=== PATIENT | female | born 1990 | race Caucasian/White ===

== ENCOUNTER 2019-05-03 10:41 | Outpatient (CLI) | payer MEDICAID, SELFPAY ==
[2019-05-03 11:00] VITALS: TEMP 36.7
[2019-05-03 11:15] VITALS: BMI 31.4
[2019-05-03 11:28] VITALS: BP 0/0
[2019-05-03 11:29] VITALS: BP 134/76; PULSE 82
[2019-05-03 11:59] VITALS: BP 145/67; PULSE 73
[2019-05-03 12:29] VITALS: BP 110/56; PULSE 94
== END 2019-05-03 12:41 | disposition home or self-care (01) ==
LOC: OPOB 11:47
PROVIDERS: Family Provider Family Medicine; PCP Family Medicine; Visit Provider Family Medicine
DX: O26.899 Other specified pregnancy related conditions, unspecified trimester (principal); Z3A.00 Weeks of gestation of pregnancy not specified; R10.9 Unspecified abdominal pain
CPT/HCPCS: 99211

== ENCOUNTER 2019-05-03 19:25 | Inpatient (IN) | payer MEDICAID, SELFPAY ==
[2019-05-03] VITALS (18 sets, daily range): BP systolic 0–172; BP diastolic 0–90; PULSE 110–126; TEMP 37.1; O2SAT 97–99; BMI 31.5
[2019-05-03 20:24] LABS: Nitrazine Paper, PH Positive
[2019-05-03 20:56] LABS: Basophils # 0.1 10^3/uL (0.0-0.1); Basophils % 0.2 %; Hematocrit 33.1 % (37.0-47.0); Lymphocytes % 3.2 %; Mean Corpuscular HGB Conc 33.2 g/dL (30.0-36.0); Mean Corpuscular Hemoglobin 28.5 pg (28.0-34.0); Mean Corpuscular Volume 85.8 fL (81-99); Mean Platelet Volume 10.3 fL (7.4-10.4); Monocytes # 1.9 10^3/uL (0.2-0.9); Monocytes % 6.3 %; Neutrophils # 26.6 10^3/uL (1.8-7.7); Neutrophils % 89.4 %; Nucleated Red Blood Cells % 0 %; Platelet Count 284 10^3/cmm (130-400); Red Blood Count 3.86 10^6/uL (4.1-5.3); Red Cell Distribution Width 12.8 % (12.1-15.1); White Blood Count 29.7 10^3/uL (4.0-10.0)
[2019-05-03] MEDS: lactated ringers 1,000 ML 999 ML IV (22:02)
[2019-05-03] MEDS: lidocaine 2% INJ 20 mL INJECTION (23:51)
[2019-05-04] VITALS (20 sets, daily range): BP systolic 0–150; BP diastolic 0–75; PULSE 79–138; RESP 16–20; TEMP 36.4–37.4; O2SAT 96
--- NOTE | 2019-05-04 00:33 | P.PCNOB_ITS ---
Delivery Note: Date of delivery: May 04, 2019 Pre-delivery diagnoses: 28-year-old 1 female at 40 weeks and 4 days presenting in active labor and possible rupture membranes Post-delivery diagnoses: Same Delivering Physician: Jared Nichols Estimated blood loss (mL): 400 Pre-Delivery Course: The patient presented to the hospital with contractions every 3 minutes. She also had some leaking fluid and was found to be nitrazine positive with a moist vaginal vault. She was GBS negative. The remainder of her labs were also within normal limits. She had consistent care. She gradually progressed to complete without difficulty. Delivery: DELIVERY: The patient progressed to complete without difficulty. She delivered a female with a weight of 8 pounds 6 ounces with Apgars of 8, 9. The baby was delivered from the JAMES position. The baby's mouth and nose were suctioned at the site of the perineum. The baby was then completely delivered and placed on the mother's abdomen. The cord was then clamped and cut approximately 1 minute after delivery.. There was no nuchal cord. Meconium was noted.. The placenta and 3 vessel cord were delivered intact shortly thereafter. The perineum and vaginal vault were carefully examined. The patient was noted to have a second-degree posterior midline tear as well as a left anterior labia minora tear both were repaired with 3-0 Vicryl in the usual fashion. Both the mother and the baby were in stable condition. Post-Delivery Status: Good Coding Level of Care Code Acute Pipeline Dispatch Operator for Kacey Luna
[2019-05-04] MEDS: benzocaine-menthol 78 gm Canister 1 SPRAY TOPICAL (02:09)
[2019-05-04] MEDS: lanolin oint 7 gm 1 APPLIC TOPICAL (02:09)
[2019-05-04] MEDS: docusate sodium 100 mg Capsule PO ×2 (08:30→21:35)
[2019-05-04 12:39] LABS: Hematocrit 28.3 % (37.0-47.0); Hemoglobin 9.2 g/dL (11.5-15.3); Mean Corpuscular HGB Conc 32.5 g/dL (30.0-36.0); Mean Corpuscular Hemoglobin 28.1 pg (28.0-34.0); Mean Corpuscular Volume 86.5 fL (81-99); Mean Platelet Volume 10.2 fL (7.4-10.4); Platelet Count 251 10^3/cmm (130-400); Red Blood Count 3.27 10^6/uL (4.1-5.3); Red Cell Distribution Width 13.1 % (12.1-15.1)
[2019-05-05] MEDS: HYDROcodone-acetaminophen 5-325 mg Tablet PO (03:36)
[2019-05-05 04:00] VITALS: BP 97/52; PULSE 87; RESP 18; TEMP 36.7; O2SAT 96
--- NOTE | 2019-05-05 09:02 | P.DS_ITS ---
Discharge Providers AFFIRMATIVE ACTION OFFICER Date of Admission: 05/03/19 19:25 Date of Discharge: 05/05/19 Attending Provider at Admission: Jared Nichols MD Attending Provider at Discharge: Jared Nichols MD Primary Care Provider: Jared Nichols MD Diagnoses at Discharge Discharge Diagnosis (1) 40 weeks gestation of : Status: Acute (2) Spontaneous vaginal delivery: Status: Acute Reason for Visit Reason for Visit: Reason For Visit: contractions Hospital Course Hospital Course: The patient presented to the hospital in active labor with spontaneous rupture of membranes. She progressed to complete and had an unremarkable delivery of a healthy-appearing . She did have a second- degree posterior midline tear and an anterior left labia minora tear. They were both repaired in usual fashion. Her course was also unremarkable. Her bleeding was within normal limits. She did have some difficulty with breast-feeding her child. The nurses have worked with her consistently throughout her hospital stay. Her pain is been well controlled. Information Peripartum Data: Delivery Method: Vaginal Physical Exam Narrative: EXAM NARRATIVE: The patient is alert. She appears comfortable. Her heart has a regular rate and rhythm with no murmurs appreciated. Lungs are clear to auscultation bilaterally. Her fundus is firm and below the umbilicus. Discharge Data Data Completed and Pending: Labs from last 24 hours 05/04/19 12:20 WBC 32.0 H* RBC 3.27 L Hgb 9.2 L Hct 28.3 L MCV 86.5 MCH 28.1 MCHC 32.5 RDW 13.1 Plt Count 251 MPV 10.2 Vitals: Last Vital Signs Temp 98.0 F 05/05/19 04:00 Pulse 87 05/05/19 04:00 Resp 18 05/05/19 04:00 BP 97/52 05/05/19 04:00 Pulse Ox 96 05/05/19 04:00 Discharge Plan Discharge Patient Disposition: Home, Self-Care Condition: Stable Prescriptions: New ibuprofen 800 mg Tablet 800 mg PO TID Qty: 45 RF: 0 Continued 28 mg iron- 800 mcg Tablet PO RF: 0 Discharge Orders: Discharge Order (Routine); Ordered 05/05/19 Ordered By: Jared Nichols Referrals: Jared Nichols MD [Primary Care Provider] - 6 Weeks Discharge Diet: Regular Discharge Activity: Limit activity as instructed Discharge Attestations AFFIRMATIVE ACTION OFFICER Time Spent in Discharge Care*: less than 30 min Coding Level of Care Code Acute Evp Sales for Chg Fwd Diagnoses 40 weeks gestation of Z3A.40 Spontaneous vaginal delivery O80
[2019-05-05] MEDS: docusate sodium 100 mg Capsule PO (09:06)
--- NOTE | 2019-05-05 09:14 | PC.NURSE ---
Patient vomited [address] Nichols in department and made aware. After patient was finished vomiting, she stated sometimes the prenatals make her vomit, and sometimes just taking pills can make her vomit, as she doesn't take them very often.
[2019-05-05 10:50] VITALS: BP 130/71; PULSE 94; RESP 18; TEMP 36.4
[2019-05-05] MEDS: ondansetron 4 MG Tablet PO (12:55)
[2019-05-05 20:10] VITALS: BP 119/61; PULSE 87; RESP 18; TEMP 37.1
== END 2019-05-05 20:35 | disposition home or self-care (01) | DRG 807 ==
LOC: OBGYN 05-05 09:02 → OPOB 05-06 07:55
PROVIDERS: Admitting Provider Family Medicine; Family Provider Family Medicine; PCP Family Medicine; Visit Provider Family Medicine
DX: O70.1 Second degree perineal laceration during delivery (principal); Z37.0 Single live birth; Z3A.40 40 weeks gestation of pregnancy; O77.0 Labor and delivery complicated by meconium in amniotic fluid
CPT/HCPCS: 12345; 36415; 59409; 83986; 85025; 85027; 99211; J2001; Q0162

== ENCOUNTER 2022-04-28 13:07 | Outpatient (CLI) | payer MEDICAID, SELFPAY ==
--- NOTE | 2022-04-28 13:18 | US_ITS ---
WS: [id number] ULTRASOUND OB COMPLETE TECHNIQUE: Complete ultrasound. CLINICAL INFORMATION: MULTIGRAVIDA 2ND TRIMESTER COMPARISON: None. FINDINGS: Closed cervix measures 4.7 cm Single interuterine gestation is identified with breech presentation. Placenta is posterior. Placenta grade 1. Slightly low-lying placenta measuring 2.0 cm from the internal cervical os Normal amniotic fluid volume. OLIVERIO 10.5 cm cardiac activity: 157 BPM. AGA: 19w5d JERE by ultrasound: 09/17/2022 Based on GA: No Available percentile Estimated weight: 328 g; 0 lbs. 12 oz. BDP: 4.4 cm = 19w2d HC: 16.7 cm = 19w3d AC: 14.7 cm = 20w0d FEMUR LENGTH: 3.3 cm = 20w2d Anatomic survey: Anatomic survey is normal. Normal stomach. Kidneys and bladder are normal. Normal 3 vessel cord. Norm al 3 vessel cord insertion. Normal 4 chamber heart. Normal spine. Intracranial contents are normal. N ormal posterior fossa and cisterna magna. US/US OB >= 14 weeks fetus [id number] IMPRESSION: 1. Single intrauterine with visualized cardiac activity. AGA 19w5d w ith JERE 09/17/2022. 2. Placenta is posterior. Slightly low-lying placenta. Recommend 3rd trimester follow-up. 3. Presentation is breech. 4. anatomic survey is normal. 5. Normal amniotic fluid volume.
== END 2022-04-28 13:08 | disposition home or self-care (01) ==
PROVIDERS: PCP Family Medicine; Visit Provider Family Medicine
DX: O44.42 Low lying placenta NOS or without hemorrhage, second trimester (principal); Z3A.19 19 weeks gestation of pregnancy
CPT/HCPCS: 76805

== ENCOUNTER 2022-08-30 22:07 | Outpatient (CLI) | payer MEDICAID, SELFPAY ==
[2022-08-30 22:03] VITALS: BMI 30.5
[2022-08-30 22:13] VITALS: BP 134/84; PULSE 75; TEMP 36.9
== END 2022-08-30 22:45 | disposition home or self-care (01) ==
LOC: OPOB 22:08 → OBGYN 22:42
PROVIDERS: PCP Family Medicine; Visit Provider Family Medicine
DX: O26.893 Other specified pregnancy related conditions, third trimester (principal); Z3A.38 38 weeks gestation of pregnancy
CPT/HCPCS: 59025; 99211

== ENCOUNTER 2022-09-11 18:48 | Inpatient (IN) | payer MEDICAID, SELFPAY ==
[2022-09-11] VITALS (10 sets, daily range): BP systolic 101–127; BP diastolic 52–78; PULSE 60–81; RESP 16; TEMP 36.1–36.3; BMI 31.4
[2022-09-11 19:39] LABS: Basophils % 0.4 %; Eosinophils # 0.2 10^3/uL (0.0-0.8); Eosinophils % 2.1 %; Hemoglobin 10.2 g/dL (11.5-15.3); Lymphocytes # 1.6 10^3/uL (0.8-4.8); Lymphocytes % 16.2 %; Mean Corpuscular HGB Conc 32.9 g/dL (30.0-36.0); Mean Corpuscular Volume 88.1 fl (81-99); Mean Platelet Volume 10.3 fL (7.4-10.4); Monocytes # 0.7 10^3/uL (0.2-0.9); Neutrophils # 7.24 10^3/uL (1.8-7.7); Neutrophils % 73.6 %; Nucleated Red Blood Cells % 0 %; Platelet Count 221 10^3/cmm (130-400); Red Blood Count 3.52 10^6/uL (4.1-5.3); Red Cell Distribution Width 12.9 % (12.1-15.1); White Blood Count 9.8 10^3/uL (4.0-10.0)
[2022-09-11] MEDS: miSOPROStol 100 mcg tablet 25 MCG VAGINAL (20:05)
[2022-09-12] VITALS (66 sets, daily range): BP systolic 85–150; BP diastolic 46–97; PULSE 56–120; RESP 12–20; TEMP 35.7–38.3; O2SAT 96–100
[2022-09-12] MEDS: miSOPROStol 100 mcg tablet 25 MCG VAGINAL ×2 (02:50→06:58)
[2022-09-12] MEDS: dextrose 5%-lactated ringers 1,000 ML 125 ML IV ×2 (11:40→21:00)
[2022-09-12] MEDS: fentaNYL 50 mcg/mL INJ 2mL IVP ×2 (11:40→12:52)
[2022-09-12] MEDS: lactated ringers 1,000 ML 999 ML IV (13:15)
--- NOTE | 2022-09-12 13:57 | ANES.PREANE2 ---
Pre-Anesthetic Assessment Height/Weight: Height 1.73 m Weight 93.894 kg Temp Pulse Resp BP Pulse Ox O2 Del Method 98.2 F 92 20 H 118/60 100 Room Air 09/12/22 13:43 09/12/22 13:53 09/12/22 12:52 09/12/22 13:51 09/12/22 13:53 09/11/22 21:55 epidural Familial anesthetic complications: none Social No alcohol and No tobacco Exam alert, oriented x 3, clear to auscultation bilaterally and regular rate & rhythm Airway Mallampati: Class II Dentition: full Anesthetic Plan ASA status: 2 Anesthesia: Regional (specify below) Risk of > 500 ml blood loss (7ml/kg in children): No Medications/Allergies Home Medications Medication Instructions Recorded Confirmed Last Taken Type vit no.95-ferrous 1 tab PO DAILY 05/04/19 09/11/22 09/09/22 History fumarate 28 mg-folic acid 800 mcg tablet () Allergies Allergy/AdvReac Type Severity Reaction Status Date / Time No Known Allergies Allergy Verified 09/11/22 21:54 Current Medications Generic Name Dose Route Start Last Admin Trade Name Freq PRN Reason Stop Dose Admin Fentanyl 25 - 100 mcg 09/12/22 11:30 09/12/22 12:52 Fentanyl 50 Mcg/Ml Inj 2ml IVP 100 mcg Q1H PRN Administration SEVERE PAIN Dextrose/Lactated Ringer's 1,000 mls @ 125 mls/hr 09/11/22 19:34 09/12/22 11:40 Dextrose 5%-Lactated Ringers IV 125 mls/hr .Q8H PRN Administration per label comments Oxytocin 30 unit/ Sodium 503 mls @ 600 mls/hr 09/12/22 12:00 09/12/22 12:31 Chloride IV 600 mls/hr .Q51M PRN 600 mls/hr POST DELIVERY Administration Protocol Lactated Ringer's 1,000 mls @ 999 mls/hr 09/12/22 12:57 09/12/22 13:15 Lactated Ringers IV 999 mls/hr .Q1H1M PRN Administration See label comments Ropivacaine 100 mg in 50 mls @ 10 mls/hr 09/12/22 13:00 09/12/22 13:14 Naropin Syringe EPIDURAL 10 mls/hr .Q5H ELI Administration PFSH Anesthesia Female Reproductive History : 2 Data Anesthesia 09/11/22 19:23 Short CBC 09/11/22 Range/Units 19:23 WBC 9.8 (4.0-10.0) 10^3/uL Hgb 10.2 L (11.5-15.3) g/dL Hct 31.0 L (37.0-47.0) % MCV 88.1 (81-99) fl Plt Count 221 (130-400) 10^3/cmm Neut % (Auto) 73.6 % Neut # (Auto) 7.24 (1.8-7.7) 10^3/uL Blood Bank 09/11/22 19:23 Blood Type A Negative Rho(D) Type Negative Antibody Screen Negative Cardiac Studies: No Data to Display
--- NOTE | 2022-09-12 13:58 | ANES.PROC ---
Anesthesia Procedures Procedure/Date: 09/12/22 Epidural: Time Out Performed: Yes Consents Signed: Procedure Consent Consent: requested by attending/covering physician, from patient, risks and benefits reviewed and patient agrees to proceed Lumbar Level: L3-L4 Epidural position: sitting Epidural procedure: sterile prep of area, 1% lidocaine to numb the area, 18 g needle, negative for paresthesia passed, neg for paresthesia, test dose given, 1.5% xylocaine 1:200k epi (5 cc), 0.2% Ropivacaine bolus ml (5), placed PCEA, no systemic response, sterile dressing applied, L.U.D. no apparent complications and 0.2% Ropiavacaine @ mls/hr (10) Additional Comments: PRANAV at 4.5 cm, threaded to 12 cm. Patient reported pain free contraction
[2022-09-12] MEDS: ondansetron 2 mg/ML SDV 2 mL 4 MG IVP (15:37)
--- NOTE | 2022-09-12 18:33 | PM.OBGYHP ---
Providers/Chief Complaint Admitting Physician: Jared Nichols MD Primary Care Provider: Jared Nichols MD HPI PERFORMING [employer] RO[address] MANAGER History of Present Illness Priscilla Caballero is a 31 year old 2 para 1-0-0-1 female at 40 weeks estimated gestational age who presented to the hospital last night for induction. She received Cytotec 25 mcg x 3. She had spontaneous rupture of membranes. She was noted to have an unusual presentation today around noon. Due to molding, I was able to determine the exact presentation of the infant, but did not change his station in about 5 to 6 hours. In addition the became tachycardic, and did demonstrate some late decelerations in the face of moderate variability. As result of the lack of progression, questionable presentation, and concerns regarding the heart tones decision was made to proceed with a section. Present Details : 2 Para: 1 Labs Rubella: Immune RPR: Negative GBS: Negative Review of Systems General: Reports: 10 or more systems reviewed and unremarkable except in HPI and below Const: Reports: fever(s) (The patient did have a Tmax of 99.9.) and fatigue Eyes: Denies: change in vision Card: Denies: chest pain Musc: Reports: back pain Dawit/Lymph: Denies: easy bruising Medications/Allergies Home Medications Medication Instructions Recorded Confirmed Last Taken Type vit no.95-ferrous 1 tab PO DAILY 05/04/19 09/11/22 09/09/22 History fumarate 28 mg-folic acid 800 mcg tablet () docusate sodium 100 mg capsule 100 mg PO BID #40 caps 09/14/22 Unknown Rx hydrocodone 5 mg-acetaminophen 325 1 tab PO Q4H PRN Moderate To 09/14/22 Unknown Rx mg tablet Severe Pain #30 tabs ibuprofen 800 mg tablet 800 mg PO TID #45 tabs 09/14/22 Unknown Rx Allergies Allergy/AdvReac Type Severity Reaction Status Date / Time No Known Allergies Allergy Verified 09/11/22 21:54 [address]SH [address] MANAGER PFSH: Social History (Updated 09/12/22 @ 18:49 by Jared Nichols MD) Marital status: Single Vitals/I&O/Wt Last Vital Signs Temp 99.9 F H 09/12/22 17:48 Pulse 90 07/10/23 18:14 Resp 20 H 09/12/22 12:52 BP 142/73 09/12/22 18:14 Pulse Ox 100 09/12/22 13:53 O2 Del Method Room Air 09/11/22 21:55 09/12/22 09/12/22 09/12/22 06:59 14:59 22:59 Intake Total 350 / 350 Output Total 200 / 200 Balance 150 / 150 Weight last 48 hrs Weight 207 lb Physical Exam Const: COMMON NORMALS: patient oriented x3 and alert HENMT: COMMON NORMALS: moist oral mucous membranes HEAD & SCALP: normal to inspection Chest: COMMONS NORMALS: normal inspection of the chest Resp: COMMON NORMALS: clear to auscultation bilaterally AUSCULTATION: clear to auscultation bilaterally Cardio: COMMON NORMALS: regular rate and regular rhythm RATE: regular rate RHYTHM: regular rhythm GI: INSPECTION: Yes normal to inspection and Yes other (Gravid) : OTHER: The cervix is 9 cm dilated, 90% effaced. Unfortunately the head is not well applied to the cervix. Extremity: COMMON NORMALS: normal to inspection GENERAL: Yes edema (Trace) Neuro: COMMON NORMALS: patient oriented x3, moves all extremities and no sensory deficits noted SENSORIUM/ORIENTATION: Yes alert Psych: COMMON NORMALS: mental status grossly normal Skin: COMMON NORMALS: no rashes or lesions noted GENERAL SKIN EXAM: no rashes or lesions noted Urinary Catheter Management: Mcintosh: Cath Placed During This Visit: yes Urinary Catheter Date of Insertion: 09/12/22 Urinary Catheter Time of Insertion: 13:55 Data 09/14/22 04:10 A&P Assessment and plan (1) Failure to progress in labor: We will proceed with a section. I discussed the risks with the patient including the risk of bleeding, and infection, and damage intra-abdominal organs. She had no further questions and wished to proceed. I also spoke with her mother on the phone and explained the situation to her, and she had no further questions. (2) tachycardia: (3) 40 weeks gestation of : Attestations Medical Necessity Statement*: I anticipate the patient will have routine and post care Coding Level of Care Code Acute Code for Chg Fwd Diagnoses Failure to progress in labor O62.2 tachycardia 40 weeks gestation of Z3A.40
[2022-09-12] MEDS: citric acid-sodium citrate 30 mL UDC PO (18:37)
[2022-09-12] MEDS: famotidine 20 mg/2 mL INJ IVP (18:37)
--- NOTE | 2022-09-12 20:26 | P.OP_ITS ---
Operative Report Date of procedure: September 12, 2022 Pre-op diagnosis: 1. 31-year-old 2 para 1-0-0-1 at 40 weeks estimated gestational age 2. Failure to progress 3. tachycardia, late decelerations Post-op diagnosis: Same Procedure done: Transverse section Specimens removed/disposition: 1. Female with a weight of 8 pounds 14 ounces and Apgars of 8 and 9 2. Placenta with a three-vessel cord delivered intact Surgeon: Jared Nichols Estimated blood loss (mL): 800 Procedure: The patient was brought back to the operating room where she was prepped and draped in usual sterile fashion. Anesthesia was found to be adequate. A lower transverse skin incision was then made with a #10 blade. I then dissected down to the underlying subcutaneous tissue until arriving at the prerectal fascia. The fascia was then nicked with the scalpel bilaterally. The fascial incisions were then carried laterally with Babin scissors. Attention was then turned to the superior aspect of the incision which was grasped with kochers and tented up away from the underlying rectus abdominis muscles. The muscles were then dissected away from the fascia manually, and later with Babin scissors. Att ention was then turned to the inferior aspect of the incision, and the fascia was dissected away from the underlying muscle in similar fashion. The rectus abdominis muscles were then spread manually. The peritoneum was entered manually. Excellent visualization of the uterus was noted. A lower transverse uterine incision was then made with a #10 blade. Upon arriving at the intrauterine cavity, the uterine incision was then extended manually. The infant was noted to be in vertex position. The baby was delivered without difficulty. After delivery of the head, the mouth and nose were suctioned at the site of the incision. There was no meconium. There was a tight nuchal cord x1 which was easily reduced.. The cord was cut and clamped. The baby was then handed to the waiting nurse. The placenta was removed intact. The uterus was externalized. The intrauterine cavity was cleansed of any remaining debris. The uterine incision was reapproximated in 2 layers. The first layer was performed with 0 Vicryl in a running locked stitch. The second layer was an imbricating stitch also using 0 Vicryl. The uterus was replaced into the abdomen. The peritoneum was then irrigated with warm saline. I reexamined the uterine incision and and noted some bleeding in the midportion of uterine incision. I placed 2 3 of 8 stitches.. The rectus abdominis muscles were then reapproximated using 0 Vicryl in a running stitch. The fascia was then reapproximated using 0 Vicryl in running stitch. Subcutaneous tissue was also reapproximated with 0 Vicryl in a running stitch. The skin was reapproximated using dorinda. A sterile dressing was placed. All counts were correct x2. Both the mother and baby were in stable condition.
[2022-09-13] VITALS: BP 101/55; PULSE 68; RESP 16; TEMP 36.6; TEMP 36.7
[2022-09-13 04:00] VITALS: BP 94/56; PULSE 65
[2022-09-13] MEDS: ketorolac 30 mg/mL INJ IVP ×2 (04:00→10:31)
[2022-09-13] MEDS: HYDROcodone-acetaminophen 5-325 mg Tablet PO (05:20)
[2022-09-13] MEDS: simethicone 80 mg Chew PO ×2 (05:20→21:26)
[2022-09-13 06:00] VITALS: PULSE 70; TEMP 36.9; O2SAT 98
[2022-09-13 06:08] LABS: Hematocrit 31.7 % (37.0-47.0); Hemoglobin 10.2 g/dL (11.5-15.3); Mean Corpuscular HGB Conc 32.2 g/dL (30.0-36.0); Mean Corpuscular Hemoglobin 28.7 pg (28.0-34.0); Mean Platelet Volume 10.6 fL (7.4-10.4); Platelet Count 206 10^3/cmm (130-400); Red Blood Count 3.56 10^6/uL (4.1-5.3); Red Cell Distribution Width 12.9 % (12.1-15.1)
[2022-09-13 06:21] LABS: White Blood Count 36.2 10^3/uL (4.0-10.0)
--- NOTE | 2022-09-13 06:53 | PM.OBGYPN ---
REGIONAL SALES CONSULTANT Subjective Subjective: Interval history: The patient has had an unremarkable night. After the she did have a temperature of 101, but that resolved and her temperature has been normal since that time. Her vitals have been within normal limits. She is felt good. She has not passed gas. Labor: Station: -3 Amniotic Membrane Status: Ruptured Monitor Mode: External Contraction Pattern: Regular Vitals/I&O/Wt Last Vital Signs Temp 98.5 F 09/13/22 06:00 Pulse 70 09/13/22 06:00 Resp 16 09/13/22 00:00 BP 94/56 09/13/22 04:00 Pulse Ox 98 09/13/22 06:00 O2 Del Method Room Air 09/13/22 06:00 09/12/22 09/12/22 09/13/22 14:59 22:59 06:59 Intake Total 2049 / 2049 Output Total 1300 / 1300 450 / 1750 Balance 750 / 750 -450 / 300 Weight last 48 hrs Weight 207 lb Physical Exam Narrative: She is in no acute distress Lungs are clear auscultation bilaterally Her heart has a regular rate and rhythm Her fundus is below the umbilicus and firm Her dressing is clean, dry and intact Her extremities have trace edema Urinary Catheter Management: Mcintosh: Cath Placed During This Visit: yes Urinary Catheter Date of Insertion: 09/12/22 Urinary Catheter Time of Insertion: 13:55 Data 09/14/22 04:10 A&P Assessment and plan (1) Status post : She is doing well, and anticipates she will have a routine post course at this time. (2) Leukocytosis: Upon the patient's white count has increased, she has no other signs of infection at this time. She did have a Tmax of 101 shortly after the but has had normal temperatures and normal vitals since that time. Her urine output has been good. She has felt great. She is hungry. We will monitor her for any signs of infection but otherwise we are going to conservatively manage her at this time. We will keep her for 48 hours to ensure that there are no signs that are delayed that we might miss. Attestations Medical Necessity Statement*: Routine and post care Coding Level of Care Code Acute Code for Chg Fwd Diagnoses Status post Z98.891 Leukocytosis D72.829
[2022-09-13] MEDS: docusate sodium 100 mg Capsule PO ×2 (07:48→21:26)
[2022-09-13] MEDS: prenatal vitamin Capsule 1 CAP PO (07:48)
[2022-09-13 09:52] VITALS: BP 120/70; PULSE 67; RESP 15; TEMP 36.4; O2SAT 99
[2022-09-13] MEDS: ondansetron 2 mg/ML SDV 2 mL 4 MG IVP (10:31)
--- NOTE | 2022-09-13 14:43 | ANE.PACU2 ---
Inpatient post-anesthesia follow up: Airway intact: Yes Vital signs: Temperature 97.5 F Pulse Rate 67 Respiratory Rate 15 Blood Pressure 120/70 Pulse Oximetry 99 Oxygen Delivery Me thod Room Air Oxygen Flow Rate Fraction of Inspir ed Oxygen Hydration adequate: Yes Nausea and vomiting: Yes Pain level: 1 Mental status: Baseline
[2022-09-13 16:00] VITALS: BP 118/70; PULSE 80; RESP 14; TEMP 36.4; O2SAT 98
[2022-09-13] MEDS: ibuprofen 800 mg tablet PO (21:26)
[2022-09-13] MEDS: ferrous sulfate EC 325 mg Tablet PO (21:27)
[2022-09-13 22:11] VITALS: BP 123/63; PULSE 91; RESP 18; TEMP 36.8; O2SAT 95
[2022-09-14 04:00] VITALS: BP 91/53; PULSE 73; RESP 18; TEMP 36.7; O2SAT 97
[2022-09-14] MEDS: HYDROcodone-acetaminophen 5-325 mg Tablet PO (04:14)
[2022-09-14 04:17] LABS: Basophils # 0.1 10^3/uL (0.0-0.1); Basophils % 0.5 %; Eosinophils # 0.2 10^3/uL (0.0-0.8); Eosinophils % 0.9 %; Hematocrit 28.4 % (37.0-47.0); Hemoglobin 8.9 g/dL (11.5-15.3); Lymphocytes # 1.6 10^3/uL (0.8-4.8); Lymphocytes % 7.1 %; Mean Corpuscular HGB Conc 31.3 g/dL (30.0-36.0); Mean Corpuscular Volume 92.5 fl (81-99); Mean Platelet Volume 10.4 fL (7.4-10.4); Monocytes # 0.9 10^3/uL (0.2-0.9); Monocytes % 4.3 %; Neutrophils % 86.6 %; Nucleated Red Blood Cells % 0 %; Platelet Count 203 10^3/cmm (130-400); Red Blood Count 3.07 10^6/uL (4.1-5.3); Red Cell Distribution Width 13.3 % (12.1-15.1); White Blood Count 21.7 10^3/uL (4.0-10.0)
--- NOTE | 2022-09-14 07:39 | P.DS_ITS ---
Discharge Providers PAN RECLAIM PROCESSOR Date of Admission: 09/11/22 18:48 Date of Discharge: 09/14/22 Attending Provider at Admission: Jared Nichols MD Attending Provider at Discharge: Jared Nichols MD Primary Care Provider: Jared Nichols MD Diagnoses at Discharge Discharge Diagnosis (1) Status post : Status: Acute (2) Leukocytosis: Status: Acute Hospital Course Hospital Course The patient presented for induction and had Cytotec 25 mcg x 3. She had spontaneous rupture of membranes. Her child then had a malpresentation and did not progress over 4 to 5 hours. There were intermittent late decelerations, and tachycardia. Due to her lack of progress and the concerning heart tones, the decision was made to proceed with a . The was unremarkable. The patient did have a Tmax of 101 after the , but it quickly resolved, and she appeared to be doing well in all regards. Her course was unremarkable. Her bleeding was within normal limits. Her pain was well controlled. She breast-fed well. She did have a white blood count of 36,000. There were no other indications of infection or concerns for infection. Her diet was advanced. She passed flatus. She ambulated frequently and without difficulty. Information Peripartum Data: Delivery Method: Physical Exam Narrative: She is in no acute distress Lungs are clear auscultation bilaterally Her heart has a regular rate and rhythm Her fundus is below the umbilicus and firm Her incision is clean, dry and intact Her extremities have trace edema Urinary Catheter Management: Mcintosh: Cath Placed During This Visit: yes, but has since been removed by the nurse Reason for Continuing Indwelling Catheter: Decision to DC Catheter Urinary Catheter Date of Insertion: 09/12/22 Urinary Catheter Time of Insertion: 13:55 Date Urinary Catheter Removed: 09/13/22 Time Urinary Catheter Discontinued: 09:25 Discharge Data Studies Completed and Pending Laboratory Results WBC 21.7 10^3/uL (4.0-10.0) H 09/14/22 04:10 RBC 3.07 10^6/uL (4.1-5.3) L 09/14/22 04:10 Hgb 8.9 g/dL (11.5-15.3) L 09/14/22 04:10 Hct 28.4 % (37.0-47.0) L 09/14/22 04:10 MCV 92.5 fl (81-99) 09/14/22 04:10 MCH 29.0 pg (28.0-34.0) 09/14/22 04:10 MCHC 31.3 g/dL (30.0-36.0) 09/14/22 04:10 RDW 13.3 % (12.1-15.1) 09/14/22 04:10 Plt Count 203 10^3/cmm (130-400) 09/14/22 04:10 MPV 10.4 fL (7.4-10.4) 09/14/22 04:10 Neut % (Auto) 86.6 % 09/14/22 04:10 Lymph % (Auto) 7.1 % 09/14/22 04:10 Menard % (Auto) 4.3 % 09/14/22 04:10 Eos % (Auto) 0.9 % 09/14/22 04:10 Baso % (Auto) 0.5 % 09/14/22 04:10 Neut # (Auto) 18.80 10^3/uL (1.8-7.7) H 09/14/22 04:10 Lymph # (Auto) 1.6 10^3/uL (0.8-4.8) 09/14/22 04:10 Menard # (Auto) 0.9 10^3/uL (0.2-0.9) 09/14/22 04:10 Eos # (Auto) 0.2 10^3/uL (0.0-0.8) 09/14/22 04:10 Baso # (Auto) 0.1 10^3/uL (0.0-0.1) 09/14/22 04:10 Nucleated RBC % (auto) 0 % 09/14/22 04:10 Nucleated RBCs # 0.0 /100WBC 09/14/22 04:10 Blood Type A Negative 09/11/22 19:23 Rho(D) Type Negative 09/11/22 19:23 Antibody Screen Negative 09/11/22 19:23 Vitals Last Vital Signs Temp 98.1 F 09/14/22 04:00 Pulse 73 09/14/22 04:00 Resp 18 09/14/22 04:00 BP 91/53 09/14/22 04:00 Pulse Ox 97 09/14/22 04:00 O2 Del Method Room Air 09/14/22 04:00 Discharge Plan Discharge Patient Disposition: Home Prescriptions: New ibuprofen 800 mg Tablet 800 mg PO TID Qty: 45 0RF hydrocodone-acetaminophen 5-325 mg Tablet 1 tab PO Q4H PRN (Reason: Moderate To Severe Pain) Qty: 30 0RF docusate sodium 100 mg Capsule 100 mg PO BID Qty: 40 0RF Rx Instructions: Take 2 BID Continued PNV cmb#95-ferrous fumarate-FA [] 28 mg iron- 800 mcg Tablet 1 tab PO DAILY Discharge Orders: Discharge Order (Routine); Ordered 09/14/22 Ordered By: Jared Nichols Referrals: Jared Nichols MD [Primary Care Provider] - 09/19/22 4:20 pm Discharge Diet: Usual diet Discharge Activity: Limit activity as instructed Patient Instructions: Depression (DC), Bleeding (DC), Preeclampsia and Eclampsia After Delivery (GEN), OB - Michael, OB Discharge Report, OB Care at Home, Opioid Safety Discharge Attestations PAN RECLAIM PROCESSOR Time Spent in Discharge Care*: greater than 30 min Coding Level of Care Code Acute Code for Chg Fwd Diagnoses Status post Z98.891 Leukocytosis D72.829
[2022-09-14 09:46] VITALS: BP 99/57; PULSE 73; RESP 18; TEMP 36.8; O2SAT 97
[2022-09-14] MEDS: ferrous sulfate EC 325 mg Tablet PO ×2 (09:46→18:37)
[2022-09-14] MEDS: docusate sodium 100 mg Capsule PO ×2 (09:47→18:37)
[2022-09-14] MEDS: ibuprofen 800 mg tablet PO ×2 (09:47→15:35)
[2022-09-14] MEDS: prenatal vitamin Capsule 1 CAP PO (09:47)
[2022-09-14] MEDS: ondansetron 2 mg/ML SDV 2 mL 4 MG IVP (11:44)
[2022-09-14 15:36] VITALS: BP 105/63; PULSE 80; TEMP 36.7; O2SAT 97
[2022-09-14 19:55] VITALS: BP 118/64; PULSE 72; RESP 17; TEMP 36.7; O2SAT 99
== END 2022-09-14 20:00 | disposition home or self-care (01) | DRG 787 ==
PROVIDERS: Admitting Provider Family Medicine; PCP Family Medicine; Visit Provider Family Medicine
PROC: 10D00Z1 Extraction of Products of Conception, Low, Open Approach (ICD-10-PCS; CPT 59514; principal; 2022-09-12 19:00)
DX: O62.8 Other abnormalities of forces of labor (principal); O86.4 Pyrexia of unknown origin following delivery; Z3A.40 40 weeks gestation of pregnancy; O76 Abnormality in fetal heart rate and rhythm complicating labor and delivery; O69.81X0 Labor and delivery complicated by cord around neck, without compression, not applicable or unspecified; Z37.0 Single live birth; O90.89 Other complications of the puerperium, not elsewhere classified; D72.829 Elevated white blood cell count, unspecified
CPT/HCPCS: 36415; 51702; 59025; 59409; 85025; 85027; 86850; 86900; 96374; 96376; 99211; J1885; J2274; J2400; J2405; J2590; J2795; J3010; J3490; J7040; J7120; J7121

== ENCOUNTER 2023-02-06 12:49 | Outpatient (CLI) | payer MEDICAID, SELFPAY ==
--- NOTE | 2023-02-06 13:00 | MR_ITS ---
WS: [id number] MRI OF THE PELVIS WITHOUT AND WITH GADOLINIUM ENHANCEMENT. INDICATION: Fibroids TECHNIQUE: Axial T1, axial T2, sagittal T2, coronal T2, and post gadolinium imaging was obtained with fat saturation technique. Axial diffusion and ADC imaging. Comparison: Ultrasound 12/15/2022 FINDINGS: Again seen is the previously described mass on the recent ultrasound measuring approximatel y 6.3 x 7.0 x 6.6 cm. This demonstrates decreased T1 and T2 signal with diffuse enhancement on the po st gadolinium delayed imaging following the uterine myometrium enhancement. Small lobulated component s extend into the LEFT aspect of the uterus adjacent to the LEFT ovary. This abuts the the multi follicular LEFT ovary. Compression of the uterus with left-right mass effect with compression of the adjacent sigmoid colon. Due to the large size, origin is difficult to identi fy but may be arising from the uterus. Tiny amount of surrounding free fluid. Normal appearing multi follicular RIGHT ovary. No lymphadenopa thy. Anteverted uterus. IMPRESSION: 1. Large lobulated LEFT pelvic mass extending into the cul-de-sac as seen on the recent ultrasound s table in size. 2. Origin is difficult to identify due to large size but primary differential consideration is exoph ytic uterine fibroid. Also consider tubal or ovarian leiomyomas. Tubal or ovarian neoplasm considered less likely but not excluded. Recommend surgical excision. 3. No pelvic or inguinal lymphadenopathy 4. Multi follicular ovaries bilaterally.
[2023-02-06] MEDS: gadobenate dimeglumine 20 mL vial IV (13:51)
== END 2023-02-06 12:50 | disposition home or self-care (01) ==
LOC: RAD 12:50
PROVIDERS: PCP Family Medicine; Visit Provider Obstetrics & Gynecology
DX: R19.00 Intra-abdominal and pelvic swelling, mass and lump, unspecified site (principal); D36.7 Benign neoplasm of other specified sites
CPT/HCPCS: 72197; A9577

== ENCOUNTER 2023-04-19 09:53 | Emergency (ER) | payer MEDICAID, SELFPAY ==
[2023-04-19 10:06] VITALS: BP 117/65; PULSE 86; TEMP 37; O2SAT 99; BMI 24.3
[2023-04-19 12:12] VITALS: BP 115/65; PULSE 82; O2SAT 99
--- NOTE | 2023-04-19 12:52 | ED_ITS ---
HPI - Fever 2 General: Chief Complaint: Fever Stated Complaint: Fever Time Seen by Provider: 04/19/23 12:17 History of Present Illness: Patient presents to the ER with complaints of fever. Patient states she been running a fever since Monday. Patient says the highest that it got was 107 degrees. Patient also had some lower abdominal pain with nausea and vomiting and diarrhea. Patient's had vomiting for about the last 3 days and diarrhea today. Patient states her abdominal pain is around her umbilicus when it happens. Patient also has some urinary frequency and burning. Patient has been around no known sick contacts. Patient's temperature upon arrival was 98.6. Review of Systems 2 General: Reports: 10 or more systems reviewed and unremarkable except in HPI and below PFSH ED 2 PFSH: Family History Denies family history of Colon cancer Ovarian cancer Thyroid cancer Diabetes Heart disease Hyperlipidemia Breast cancer Hypertension Uterine cancer Stroke Social History Marital status: Single Physical Exam 2 Const: COMMON NORMALS: no acute distress, average body habitus, patient oriented x3, no limitations, healthy appearing, alert and well nourished HENMT: COMMON NORMALS: normocephalic, atraumatic, hearing grossly normal bilaterally, external ears normal, Normal external nose present, moist oral mucous membranes and oropharynx normal HEAD & SCALP: normocephalic and atraumatic NOSE: Normal external nose present EXTERNAL EAR: Yes external ears normal Neck/C-Spine: COMMON NORMALS: full ROM, no lymphadenopathy, supple, no meningeal signs, no JVD and Thyroid normal THYROID: Thyroid normal Chest: COMMONS NORMALS: normal inspection of the chest and normal palpation of entire chest wall Resp: COMMON NORMALS: normal respiratory effort, No retractions, No use of accessory muscles and clear to auscultation bilaterally AUSCULTATION: clear to auscultation bilaterally Cardio: COMMON NORMALS: no JVD, regular rate, regular rhythm, S1 normal heart sound present, S2 normal heart sound present, No gallops present (Cardio), No clicks present (Cardio), No murmurs present (Cardio) and No rub (Cardio) R ATE: regular rate RHYTHM: regular rhythm HEART SOUNDS: S1 normal heart sound present and S2 normal heart sound present GI: COMMON NORMALS: Normal to inspection, nondistended, normoactive bowel sounds present, Soft to palpation, non-tender, No hepatosplenomegaly present and no masses PALPATION: Yes Soft to palpation and Yes No hepatosplenomegaly present Neuro: COMMON NORMALS: patient oriented x3 SENSORIUM/ORIENTATION: Yes alert MENINGEAL SIGNS: Yes no meningeal signs Course 2 Vital Signs: Vital signs: Vital Signs Temperature 98.6 F 04/19/23 10:06 Pulse Rate 82 04/19/23 12:12 Blood Pressure 115/65 04/19/23 12:12 Pulse Oximetry 99 04/19/23 12:12 Oxygen Delivery Me thod Room Air 04/19/23 12:12 MDM - Fever Medical Decision Making Patient presents to the ER with complaints of fever. Patient was worked up with labs and urinalysis. Patient's white count was normal at 14.3 however patient urinalysis showed significant infection with urine white cells greater than 100. Patient was influenza and COVID-negative. Patient was given 1 L normal saline, 4 mg Zofran, Cipro 500 mg p.o. here in ER. Patient be discharged with prescription for Zofran and Cipro. Differential Diagnosis Likely abdominal pain; Unlikely acute appendicitis, calculus of kidney, constipation, diverticulitis, endometriosis, gastroenteritis, pancreatitis or small bowel obstruction Medical Records I reviewed the patient's medical records. Lab Data I reviewed the patient's lab results. 04/19/23 12:59 04/19/23 12:59 Laboratory Results WBC 10.94 10^3/uL (3.29-11.43) 04/19/23 12:59 RBC 4.77 10^6/uL (3.85-5.65) 04/19/23 12:59 Hgb 14.30 g/dL (11.27-16.99) 04/19/23 12:59 Hct 42.0 % (36-47) 04/19/23 12:59 MCV 88.1 fl (85-98) 04/19/23 12:59 MCH 30.0 pg (27-33) 04/19/23 12:59 MCHC 34.0 g/dL (30-55) 04/19/23 12:59 RDW 12.9 % (12.1-15.1) 04/19/23 12:59 Plt Count 227 10^3/cmm (157-399) 04/19/23 12:59 MPV 9.8 fL (7.4-10.4) 04/19/23 12:59 Neut % (Auto) 89.7 % 04/19/23 12:59 Lymph % (Auto) 7.7 % 04/19/23 12:59 Weber % (Auto) 1.9 % 04/19/23 12:59 Eos % (Auto) 0.1 % 04/19/23 12:59 Baso % (Auto) 0.3 % 04/19/23 12:59 Neut # (Auto) 9.82 10^3/uL (1.8-7.7) H 04/19/23 12:59 Lymph # (Auto) 0.8 10^3/uL (0.8-4.8) 04/19/23 12:59 Weber # (Auto) 0.2 10^3/uL (0.2-0.9) 04/19/23 12:59 Eos # (Auto) 0.0 10^3/uL (0.0-0.8) 04/19/23 12:59 Baso # (Auto) 0.0 10^3/uL (0.0-0.1) 04/19/23 12:59 Nucleated RBC % (auto) 0 % 04/19/23 12:59 Nucleated RBCs # 0.0 /100WBC 04/19/23 12:59 Sodium 135 mmol/L (136-145) L 04/19/23 12:59 Potassium 3.9 mmol/L (3.5-5.1) 04/19/23 12:59 Chloride 96 mmol/L (98-107) L 04/19/23 12:59 Carbon Dioxide 28 mmol/L (22-29) 04/19/23 12:59 Anion Gap 14.9 (5-19) 04/19/23 12:59 BUN 10 mg/dL (6-20) 04/19/23 12:59 Creatinine 0.9 mg/dL (0.5-0.9) 04/19/23 12:59 GFR Calculation 73.5 mL/min (90-130) L 04/19/23 12:59 Glucose 114 mg/dL (65-115) 04/19/23 12:59 Calculated Osmolality 280 mOsm/kg (285-295) L 04/19/23 12:59 Calcium 8.8 mg/dL (8.5-10.5) 04/19/23 12:59 Magnesium 2.3 mg/dL (1.7-2.3) 04/19/23 12:59 Total Bilirubin 0.9 mg/dL (0.15-1.2) 04/19/23 12:59 AST 14 U/L (0-32) 04/19/23 12:59 ALT 17 U/L (0-33) 04/19/23 12:59 Alkaline Phosphatase 52 U/L (35-105) 04/19/23 12:59 Total Protein 8.0 g/dL (6.6-8.7) 04/19/23 12:59 Albumin 3.8 g/dL (3.5-5.2) 04/19/23 12:59 Globulin 4.2 g/dL (1.3-4.6) 04/19/23 12:59 HCG, Qual Negative (Negative) 04/19/23 12:40 Urine Color Yellow (Yellow) 04/19/23 12:40 Urine Appearance Hazy (CLEAR) A 04/19/23 12:40 Urine pH 6 (5-7) 04/19/23 12:40 Ur Specific [place] 1.010 (1.005-1.030) 04/19/23 12:40 Urine Protein Neg (Negative) 04/19/23 12:40 Urine Glucose (UA) Norm (Normal) 04/19/23 12:40 Urine Ketones Negative (Negative) 04/19/23 12:40 Urine Blood 2+ (Negative) H 04/19/23 12:40 Urine Nitrate Positive (Negative) H 04/19/23 12:40 Urine Bilirubin Neg (Negative) 04/19/23 12:40 Urine Urobilinogen Norm mg/dL (Negative) 04/19/23 12:40 Ur Leukocyte Esterase 2+ (Negative) H 04/19/23 12:40 Urine RBC 5-10 /hpf (0-2) H 04/19/23 12:40 Urine WBC >100 /hpf (0-5) H 04/19/23 12:40 Ur Squamous Epith Cells 5-10 /hpf (0-5) H 04/19/23 12:40 Ur Transition Epith Cell 0-4 /hpf 04/19/23 12:40 Amorphous Sediment Not Reportable 04/19/23 12:40 Urine Bacteria 2+ /hpf (NONE) H 04/19/23 12:40 Urine Mucus 1+ /hpf 04/19/23 12:40 Influenza Type A Ag negative (Negative) 04/19/23 13:19 Influenza Type B Ag negative (Negative) 04/19/23 13:19 SARS-CoV-2 Ag (Rapid) negative (Negative) 04/19/23 13:19 All radiology interpretation(s) finalized by discharge Discharge Plan Discharge Patient Disposition: Home Clinical Impression: Urinary tract infection Qualifiers: Urinary tract infection type: acute cystitis Hematuria presence: with hematuria Qualified Code(s): N30.01 - Acute cystitis with hematuria Condition: Stable Prescriptions: New ondansetron HCl 4 mg tablet 4 mg PO QID PRN (Reason: nausea and vomiting) Qty: 14 0RF ciprofloxacin HCl 500 mg tablet 500 mg PO Q12H Qty: 20 0RF No Action amoxicillin 500 mg capsule 500 mg PO QID Rx Instructions: for 7d/s (rx filled 10/02/23) Sprintec (28) 0.25-35 mg-mcg tablet 1 tab PO QAM Tylenol Ex Str Rapid Release 500 mg Tablet 1,500 mg PO Q6H PRN (Reason: Pain) Discharge Orders: Discharge ED (Routine); Ordered 04/19/23 Ordered By: Kam Mayer Referrals: Jared Nichols MD [Primary Care Provider] - 1 week Patient Instructions: Urinary Tract Infection - Women Activity Restrictions/Additional Instructions: Please take all your medicine as prescribed. Please drink plenty of fluids to help flush out your system. Please take [id number] Tylenol and/or Motrin as needed for Coding Level of Care Code ED Printing Specialist for Kacey Luna
[2023-04-19 12:59] LABS: Urine Appearance Hazy (CLEAR); Urine Color Yellow (Yellow); pH Urine 6 (5-7)
[2023-04-19 13:00] LABS: Add Urine Microscopic? YES; Bilirubin Urine Neg (Negative); Blood Urine 2+ (Negative); Glucose Urine UA Norm (Normal); HCG Qualitative Urine. Negative (Negative); Ketones Urine Negative (Negative); Leukocyte Esterase Urine 2+ (Negative); Nitrate Urine Positive (Negative); Protein Urine Neg (Negative); Urobilinogen Urine Norm (Negative)
[2023-04-19 13:05] LABS: Basophils % 0.3 %; Eosinophils % 0.1 %; Lymphocytes # 0.8 10^3/uL (0.8-4.8); Lymphocytes % 7.7 %; Mean Corpuscular Volume 88.1 fl (85-98); Mean Platelet Volume 9.8 fL (7.4-10.4); Monocytes # 0.2 10^3/uL (0.2-0.9); Monocytes % 1.9 %; Neutrophils # 9.82 10^3/uL (1.8-7.7); Neutrophils % 89.7 %; Nucleated Red Blood Cells % 0 %; Platelet Count 227 10^3/cmm (157-399); Red Blood Count 4.77 10^6/uL (3.85-5.65); Red Cell Distribution Width 12.9 % (12.1-15.1); White Blood Count 10.94 10^3/uL (3.29-11.43)
[2023-04-19 13:22] LABS: Alanine Aminotransferase 17 U/L (0-33); Albumin Level 3.8 g/dL (3.5-5.2); Alkaline Phosphatase 52 U/L (35-105); Anion Gap 14.9 (5-19); Aspartate Amino Transferase 14 U/L (0-32); Blood Urea Nitrogen 10 mg/dL (6-20); Calcium 8.8 mg/dL (8.5-10.5); Carbon Dioxide 28 mmol/L (22-29); Chloride 96 mmol/L (98-107); Globulin 4.2 g/dL (1.3-4.6); Glomerular Filtration Rate 73.5 mL/min (90-130); Glucose 114 mg/dL (65-115); Magnesium 2.3 mg/dL (1.7-2.3); Osmolality Calculated 280 mOsm/kg (285-295); Potassium 3.9 mmol/L (3.5-5.1); Sodium 135 mmol/L (136-145); Total Bilirubin 0.9 mg/dL (0.15-1.2)
[2023-04-19 13:25] LABS: Add Urine Culture? Yes; Bacteria Urine 2+ /hpf; Mucus Urine 1+ /hpf; Transitional Epi Cells Urine 0-4 /hpf; WBC Urine >100 /hpf (0-5)
[2023-04-19] MEDS: ondansetron 2 mg/ML SDV 2 mL 4 MG IVP (13:25)
[2023-04-19] MEDS: sodium chloride 0.9% 1,000 ML 999 ML IV (13:25)
--- NOTE | 2023-04-19 13:30 | PC.PHAR ---
pt states she takes care of her own medications-pt states she is still taking amoxil 500mg qid rx filled 04/03/23 7d/s pt states sometimes she forgets to take-
[2023-04-19] MEDS: ciprofloxacin 500 mg Tablet PO (13:44)
[2023-04-19 14:01] LABS: SARS Covid-2 Antigen negative (Negative)
[2023-04-19 15:12] LABS: Influenza A by IFA negative (Negative); Influenza B by IFA negative (Negative)
== END 2023-04-19 15:54 | disposition home or self-care (01) ==
PROVIDERS: Emergency Provider Emergency Medicine; PCP Family Medicine
DX: N30.01 Acute cystitis with hematuria (principal); Z11.52 Encounter for screening for COVID-19
CPT/HCPCS: 36415; 80053; 81001; 81025; 83735; 85025; 87077; 87086; 87186; 87426; 87804; 96374; 99284; J2405; J7030

== ENCOUNTER 2024-12-27 15:10 | Outpatient (CLI) | payer MEDICAID, SELFPAY ==
[2024-12-27 15:10] VITALS: BMI 27.0
[2024-12-27 15:26] VITALS: BP 139/85; PULSE 72
[2024-12-27 15:35] LABS: Glucose Urine UA Negative (Normal); Nitrate Urine Negative (Negative); Specific Gravity, Urine 1.014 (1.005-1.030)
[2024-12-27 15:41] VITALS: BP 118/70; PULSE 67
[2024-12-27 15:56] VITALS: BP 110/61; PULSE 68
[2024-12-27 16:11] VITALS: BP 111/59; PULSE 61
[2024-12-27 16:24] VITALS: BP 111/59; PULSE 67; RESP 17; O2SAT 98
== END 2024-12-27 16:24 | disposition home or self-care (01) ==
LOC: OPOB 15:17 → OBGYN 15:18
PROVIDERS: PCP Family Medicine; Visit Provider Family Medicine
DX: O26.899 Other specified pregnancy related conditions, unspecified trimester (principal); Z3A.00 Weeks of gestation of pregnancy not specified; M54.9 Dorsalgia, unspecified
CPT/HCPCS: 81001; 99211

== ENCOUNTER 2025-01-29 14:25 | Oncology outpatient (recurring) (ONCR) | payer MEDICAID, SELFPAY | END 2025-02-02 23:59 | disposition home or self-care (01) | LOC: ONCMED 14:26 | PROVIDERS: PCP Family Medicine; Visit Provider Family Medicine | DX: Z67.11 Type A blood, Rh negative (principal); Z34.83 Encounter for supervision of other normal pregnancy, third trimester; Z3A.28 28 weeks gestation of pregnancy; Z79.899 Other long term (current) drug therapy | CPT/HCPCS: 96372; J2790 ==